=== PATIENT | male | born 1945 | race Two or more races ===

== ENCOUNTER 2021-01-18 13:43 | Inpatient (IN) | payer MEDICAID, OTHER ==
[~2021-01-18] VITALS: Ht 162.6 cm; Wt 56.7 kg
[2021-01-18 14:39] LABS: Basophils # (auto) 0 10 ^3/uL (0-0.2); Eosinophils # (auto) 0 10 ^3/uL (0-0.8); Lymphocytes # (auto) 0.4 10 ^3/uL (0.4-5.4); Neutrophils # (auto) 4.3 10 ^3/uL (1.6-8.6); White Blood Cell 5.4 10^3/uL (4.4-10.8)
[2021-01-18 14:41] LABS: Basophils % (auto) 0.3 % (0.0-2.0); Eosinophils % (auto) 0.3 % (0.0-7.0); Hematocrit 33.1 % (41.0-53.0); Hemoglobin 11.3 g/dL (13.5-17.5); Lymphocytes % (auto) 8.3 % (10.0-50.0); Mean Corpuscular Hemoglobin 34.2 pg (28.0-32.0); Mean Corpuscular Hgb Conc. 34.2 g/dL (32.0-36.0); Mean Corpuscular Volume 100.2 fL (80.0-100.0); Monocytes # (auto) 0.6 10 ^3/uL (0-1.3); Monocytes % (auto) 11.7 % (0.0-12.0); Neutrophils % (auto) 79.4 % (37.0-80.0); Nucleated Red Blood Cells % 0.4 %; Platelet Count (auto) 149 10^3/uL (140-450); Red Cell Distribution Width 18.2 % (11.8-14.3)
[2021-01-18 14:49] LABS: Albumin 3.5 g/dL (3.4-5.0); Calcium 8.6 mg/dL (8.5-10.1); Potassium 3.6 mmol/L (3.5-5.1)
[2021-01-18 14:51] LABS: BUN/Creatinine Ratio 20.2
[2021-01-18 14:55] LABS: Bilirubin, Total 1.2 mg/dL (0.2-1.0)
[2021-01-18] MEDS ORDERED: ACETAMINOPHEN 500 MG TAB PO ONE (15:00)
[2021-01-18] MEDS ORDERED: cefTRIAXone 1GM/50ML D5W 50 ML IV ONE (16:00)
[2021-01-18] MEDS ORDERED: AZITHROMYCIN 500MG/ 250ML 250 ML IV ONE (16:00)
[2021-01-18 16:11] LABS: Urine WBC None Seen /hpf (0 - 3)
[2021-01-18 16:41] LABS: Urine Bacteria NONE SEEN /hpf (None Seen); Urine Blood Negative /uL (Negative); Urine Specific Gravity 1.023 (1.001-1.035); Urine Sperm PRESENT /hpf (None Seen)
[2021-01-18] MEDS ORDERED: ACETAMINOPHEN 500 MG TAB PO PRN (18:45)
[2021-01-18] MEDS ORDERED: HYDROcodone-ACET 5/325MG TAB PO PRN (18:45)
[2021-01-18] MEDS ORDERED: NITROGLYCERIN 0.4 MG SL TAB SL PRN (18:45)
[2021-01-18] MEDS ORDERED: MORPHINE SULF INJ 2 MG/ML SYRINGE 1ML IV PRN ×2 (18:45)
[2021-01-18] MEDS ORDERED: ONDANSETRON HCL 4 MG/2 ML VIAL IV PRN (18:45)
[2021-01-18 22:00] VITALS: BP 103/57
[2021-01-18] MEDS: CARVEDILOL 3.125 MG TAB PO SCH (22:00)
[2021-01-19] MEDS ORDERED: BUME1TAB3 PO (04:23)
[2021-01-19] MEDS ORDERED: AMIO200T43 PO (04:23)
[2021-01-19] MEDS ORDERED: ATOR80TA PO (04:23)
[2021-01-19] MEDS ORDERED: DIGO0.12 PO (04:23)
[2021-01-19] MEDS ORDERED: SPIR25TA8 PO (04:23)
[2021-01-19] MEDS ORDERED: LEVO125T7 PO (04:25)
[2021-01-19 05:00] VITALS: BP 93/45
[2021-01-19] MEDS: LEVOTHYROXINE SODIUM 25 MCG TAB PO SCH (06:32)
[2021-01-19 09:00] VITALS: BP 94/46
[2021-01-19] MEDS ORDERED: cefTRIAXone 1GM/50ML D5W 50 ML IV SCH (09:00)
[2021-01-19] MEDS: CARVEDILOL 3.125 MG TAB PO SCH ×2 (09:30→22:00)
[2021-01-19] MEDS: ASPirin 81 mg TAB PO SCH (09:30)
[2021-01-19] MEDS: LISINOPRIL 5 MG TAB PO SCH (09:31)
[2021-01-19] MEDS ORDERED: AZITHROMYCIN 250 MG TAB PO SCH (10:00)
[2021-01-19] MEDS ORDERED: FUROSEMIDE 40 MG/4 ML VIAL IV SCH (10:00)
[2021-01-19] MEDS ORDERED: OPTISON 3ml Vial for INJ IV ONE (10:15)
[2021-01-19 12:56] VITALS: BP 90/49
[2021-01-19 20:00] VITALS: BP 98/53
[2021-01-19 22:18] VITALS: BP 98/53
[2021-01-20 05:20] VITALS: BP 107/63
[2021-01-20] MEDS: LEVOTHYROXINE SODIUM 25 MCG TAB PO SCH (07:05)
[2021-01-20 08:30] VITALS: BP 108/60
[2021-01-20] MEDS ORDERED: ONDA-144 PO (09:55)
[2021-01-20] MEDS: ASPirin 81 mg TAB PO SCH (09:56)
[2021-01-20] MEDS: CARVEDILOL 3.125 MG TAB PO SCH (09:56)
[2021-01-20] MEDS: LISINOPRIL 5 MG TAB PO SCH (09:57)
[2021-01-20 12:00] VITALS: BP 107/60
== END 2021-01-20 14:20 | disposition home or self-care (01) | DRG 194 ==
LOC: ER 13:43 → EDBD 13:43 → TELE-CENTR 18:46
PROVIDERS: ADMIT Nurse Practitioner Acute Care; ATTEND Internal Medicine
DX: I11.0 Hypertensive heart disease with heart failure (principal); R65.10 Systemic inflammatory response syndrome (SIRS) of non-infectious origin without acute organ dysfunction; I42.0 Dilated cardiomyopathy; D63.8 Anemia in other chronic diseases classified elsewhere; E11.9 Type 2 diabetes mellitus without complications; E78.5 Hyperlipidemia, unspecified; T50.B95A Adverse effect of other viral vaccines, initial encounter; I50.23 Acute on chronic systolic (congestive) heart failure; I25.10 Atherosclerotic heart disease of native coronary artery without angina pectoris; Z20.822 Contact with and (suspected) exposure to COVID-19; K70.30 Alcoholic cirrhosis of liver without ascites; Y92.89 Other specified places as the place of occurrence of the external cause; Z95.0 Presence of cardiac pacemaker
CPT/HCPCS: 36415; 71045; 80053; 80162; 81001; 83880; 84443; 84484; 85025; 85049; 87081; 87426; 93005; 93306; 96365; 96366; 96368; G0378; J0696; Q9956

== ENCOUNTER 2021-06-20 19:35 | Inpatient (IN) | payer MEDICARE, MEDICAID ==
[~2021-06-20] VITALS: Ht 165.1 cm; Wt 61.3 kg
[~2021-06-20 19:35] MED LIST: AMIO200T43 PO; ATOR80TA PO; BUME1TAB3 PO; DIGO0.12 PO; LEVO125T7 PO; ONDA-144 PO; SPIR25TA8 PO
[2021-06-20 22:37] LABS: Basophils # (auto) 0 10 ^3/uL (0-0.2); Basophils % (auto) 0.2 % (0.0-2.0); Eosinophils # (auto) 0 10 ^3/uL (0-0.8); Eosinophils % (auto) 0.8 % (0.0-7.0); Hematocrit 34.8 % (41.0-53.0); Hemoglobin 11.3 g/dL (13.5-17.5); Lymphocytes % (auto) 18.3 % (10.0-50.0); Mean Corpuscular Hemoglobin 32.8 pg (28.0-32.0); Mean Corpuscular Hgb Conc. 32.5 g/dL (32.0-36.0); Mean Corpuscular Volume 100.9 fL (80.0-100.0); Monocytes # (auto) 0.5 10 ^3/uL (0-1.3); Monocytes % (auto) 9.8 % (0.0-12.0); Neutrophils # (auto) 3.8 10 ^3/uL (1.6-8.6); Neutrophils % (auto) 70.9 % (37.0-80.0); Nucleated Red Blood Cells % 0.1 %; Red Blood Cells 3.44 10^6/uL (4.5-5.90); Red Cell Distribution Width 15.3 % (11.8-14.3); White Blood Cell 5.3 10^3/uL (4.4-10.8)
[2021-06-20 23:00] LABS: Albumin 3.6 g/dL (3.4-5.0); BUN/Creatinine Ratio 21.8; Calcium 8.3 mg/dL (8.5-10.1); Potassium 4.1 mmol/L (3.5-5.1)
[2021-06-20 23:06] LABS: Bilirubin, Total 1.1 mg/dL (0.2-1.0); Total Protein 7.6 g/dL (6.4-8.2)
[2021-06-21] MEDS ORDERED: NITROGLYCERIN 0.4 MG SL TAB SL PRN (10:45)
[2021-06-21] MEDS ORDERED: MORPHINE SULFATE INJECTION 2 MG/ML SYRG IV PRN (10:45)
[2021-06-21] MEDS ORDERED: FUROSEMIDE 40 MG/4 ML VIAL IV ONE (10:45)
[2021-06-21] MEDS: BUMETANIDE 2.5mg/10ml (0.25 mg/ml) INJ IV SCH ×2 (11:45→22:30)
[2021-06-21] MEDS ORDERED: FOLIC ACID 1 MG TAB PO ONE (13:45)
[2021-06-21] MEDS ORDERED: MULTIPLE VITAMINS W/ MINERALS TAB PO ONE (13:45)
[2021-06-21] MEDS ORDERED: THIAMINE HCL 100 MG TAB PO ONE (13:45)
[2021-06-21] MEDS ORDERED: SPIR25TA8 PO (14:06)
[2021-06-21 20:20] VITALS: BP 110/60
[2021-06-22 06:00] VITALS: BP 114/64
[2021-06-22] MEDS: BUMETANIDE 2.5mg/10ml (0.25 mg/ml) INJ IV SCH ×2 (06:45→17:25)
[2021-06-22] MEDS ORDERED: LEVOTHYROXINE SODIUM 100 MCG TAB PO SCH (07:00)
[2021-06-22 07:42] LABS: Basophils # (auto) 0 10 ^3/uL (0-0.2); Basophils % (auto) 0.4 % (0.0-2.0); Eosinophils # (auto) 0.1 10 ^3/uL (0-0.8); Eosinophils % (auto) 1.5 % (0.0-7.0); Hematocrit 33.8 % (41.0-53.0); Hemoglobin 11.4 g/dL (13.5-17.5); Lymphocytes # (auto) 0.9 10 ^3/uL (0.4-5.4); Lymphocytes % (auto) 20.7 % (10.0-50.0); Mean Corpuscular Hemoglobin 33.4 pg (28.0-32.0); Mean Corpuscular Hgb Conc. 33.9 g/dL (32.0-36.0); Mean Corpuscular Volume 98.5 fL (80.0-100.0); Monocytes # (auto) 0.5 10 ^3/uL (0-1.3); Neutrophils % (auto) 65.4 % (37.0-80.0); Nucleated Red Blood Cells % 0.1 %; Red Blood Cells 3.43 10^6/uL (4.5-5.90); Red Cell Distribution Width 14.7 % (11.8-14.3); White Blood Cell 4.6 10^3/uL (4.4-10.8)
[2021-06-22 08:02] LABS: INR 1.25 (0.9-1.15)
[2021-06-22 08:18] LABS: Calcium 8.8 mg/dL (8.5-10.1); Potassium 3.5 mmol/L (3.5-5.1)
[2021-06-22 08:24] LABS: Albumin 3.5 g/dL (3.4-5.0); BUN/Creatinine Ratio 26.2; Bilirubin, Total 1.4 mg/dL (0.2-1.0); Total Protein 6.8 g/dL (6.4-8.2)
[2021-06-22 09:00] VITALS: BP 107/55
[2021-06-22] MEDS: MULTIPLE VITAMINS W/ MINERALS TAB PO SCH (09:51)
[2021-06-22] MEDS: FOLIC ACID 1 MG TAB PO SCH (09:51)
[2021-06-22] MEDS: ENOXAPARIN SOD 40 MG/0.4 ML SYRINGE SC SCH (09:51)
[2021-06-22] MEDS: THIAMINE HCL 100 MG TAB PO SCH (09:52)
[2021-06-22] MEDS: DAPAGLIFLOZIN 5 MG TAB PO SCH (09:52)
[2021-06-22] MEDS: PANTOPRAZOLE 40 MG TAB PO SCH (09:52)
[2021-06-22 13:00] VITALS: BP 110/75
[2021-06-22] MEDS ORDERED: CHOLECALCIFEROL (VITD3) 2,000 UNIT CAP/TAB PO ONE (13:15)
[2021-06-22 17:00] VITALS: BP 107/63
[2021-06-22 22:00] VITALS: BP 108/58
[2021-06-23 00:19] VITALS: BP 108/58
[2021-06-23 05:00] VITALS: BP 101/52
[2021-06-23] MEDS: BUMETANIDE 2.5mg/10ml (0.25 mg/ml) INJ IV SCH ×2 (06:08→17:42)
[2021-06-23] MEDS ORDERED: LEVOTHYROXINE SODIUM 50 MCG TAB PO SCH (07:00)
[2021-06-23 07:26] LABS: Potassium 3.7 mmol/L (3.5-5.1)
[2021-06-23 07:31] LABS: BUN/Creatinine Ratio 23.9; Calcium 8.9 mg/dL (8.5-10.1)
[2021-06-23 09:00] VITALS: BP 102/58
[2021-06-23] MEDS: THIAMINE HCL 100 MG TAB PO SCH (09:33)
[2021-06-23] MEDS: DAPAGLIFLOZIN 5 MG TAB PO SCH (09:33)
[2021-06-23] MEDS: ENOXAPARIN SOD 40 MG/0.4 ML SYRINGE SC SCH (09:33)
[2021-06-23] MEDS: MULTIPLE VITAMINS W/ MINERALS TAB PO SCH (09:34)
[2021-06-23] MEDS: FOLIC ACID 1 MG TAB PO SCH (09:34)
[2021-06-23] MEDS: PANTOPRAZOLE 40 MG TAB PO SCH (09:34)
[2021-06-23] MEDS ORDERED: AMIODARONE HCL 200 MG TAB PO SCH (10:00)
[2021-06-23] MEDS ORDERED: CHOLECALCIFEROL (VITD3) 2,000 UNIT CAP/TAB PO SCH (10:00)
[2021-06-23] MEDS ORDERED: ATOR10TA PO (12:34)
[2021-06-23] MEDS ORDERED: CHOL20007 PO (12:34)
[2021-06-23] MEDS ORDERED: LEVO125T7 PO (12:34)
[2021-06-23] MEDS ORDERED: BUME1TAB3 PO (12:34)
[2021-06-23 13:00] VITALS: BP 154/66
[2021-06-23 13:13] VITALS: BP 102/58
[2021-06-23 17:00] VITALS: BP 122/76
== END 2021-06-23 19:23 | disposition home or self-care (01) | DRG 291 ==
LOC: ER 19:36 → TELE 06-21 10:34 → TELE-WESTW 06-21 20:25
PROVIDERS: ADMIT Internal Medicine; ATTEND Internal Medicine
DX: I13.0 Hypertensive heart and chronic kidney disease with heart failure and stage 1 through stage 4 chronic kidney disease, or unspecified chronic kidney disease (principal); I50.43 Acute on chronic combined systolic (congestive) and diastolic (congestive) heart failure; I42.0 Dilated cardiomyopathy; I42.6 Alcoholic cardiomyopathy; I27.20 Pulmonary hypertension, unspecified; K70.31 Alcoholic cirrhosis of liver with ascites; N18.9 Chronic kidney disease, unspecified; E03.9 Hypothyroidism, unspecified; E55.9 Vitamin D deficiency, unspecified; E11.22 Type 2 diabetes mellitus with diabetic chronic kidney disease; K76.1 Chronic passive congestion of liver; Z20.822 Contact with and (suspected) exposure to COVID-19; E78.5 Hyperlipidemia, unspecified; F10.10 Alcohol abuse, uncomplicated; I25.10 Atherosclerotic heart disease of native coronary artery without angina pectoris; Z82.49 Family history of ischemic heart disease and other diseases of the circulatory system; Z91.19 Patient's noncompliance with other medical treatment and regimen; Z95.810 Presence of automatic (implantable) cardiac defibrillator; Z83.3 Family history of diabetes mellitus; Z87.891 Personal history of nicotine dependence; Z91.14 Patient's other noncompliance with medication regimen
CPT/HCPCS: 36415; 71045; 76700; 80048; 80053; 80061; 82306; 83735; 83880; 84443; 84484; 85025; 85610; 87426; 93005; 93306; 93970; 96374; 97110; 97116; 97530; G0378

== ENCOUNTER 2021-07-29 08:41 | Emergency (ER) | payer OTHER, MEDICAID ==
[~2021-07-29] VITALS: Ht 165.1 cm; Wt 61.2 kg
[~2021-07-29 08:41] MED LIST changes: -AMIO200T43 PO; +ATOR10TA PO; -ATOR80TA PO; -DIGO0.12 PO; -ONDA-144 PO; -SPIR25TA8 PO
[2021-07-29 09:13] VITALS: BP 141/72
[2021-07-29] MEDS ORDERED: BENZ100C19 PO (10:42)
[2021-07-29] MEDS ORDERED: DOXY-286 PO (10:42)
[2021-07-29] MEDS ORDERED: PRED10TA PO (10:42)
[2021-07-29] MEDS ORDERED: ACET-1158 PO (10:42)
== END 2021-07-29 11:42 | disposition home or self-care (01) ==
LOC: ER 08:41
DX: J06.9 Acute upper respiratory infection, unspecified (principal); I11.0 Hypertensive heart disease with heart failure; I50.9 Heart failure, unspecified; E11.9 Type 2 diabetes mellitus without complications; E78.5 Hyperlipidemia, unspecified; Z20.822 Contact with and (suspected) exposure to COVID-19
CPT/HCPCS: 36415; 71046; 87426

== ENCOUNTER 2023-06-02 16:42 | Inpatient (IN) | payer MEDICARE, MEDICAID ==
[~2023-06-02] VITALS: Ht 165.1 cm; Wt 63.4 kg
[~2023-06-02 16:42] MED LIST changes: +ACET500T58 PO; +BENZ100C19 PO; +DOXY-286 PO; +PRED10TA PO
[2023-06-02 17:11] LABS: Basophils # (auto) 0 10 ^3/uL (0-0.2); Basophils % (auto) 0.7 % (0.0-2.0); Eosinophils # (auto) 0.2 10 ^3/uL (0-0.8); Eosinophils % (auto) 3.2 % (0.0-7.0); Hematocrit 38.5 % (41.0-53.0); Lymphocytes # (auto) 1.5 10 ^3/uL (0.4-5.4); Lymphocytes % (auto) 27.3 % (10.0-50.0); Mean Corpuscular Hemoglobin 33.9 pg (28.0-32.0); Mean Corpuscular Hgb Conc. 33.8 g/dL (32.0-36.0); Mean Corpuscular Volume 100.3 fL (80.0-100.0); Monocytes # (auto) 0.6 10 ^3/uL (0-1.3); Monocytes % (auto) 11.7 % (0.0-12.0); Neutrophils # (auto) 3.1 10 ^3/uL (1.6-8.6); Neutrophils % (auto) 57.1 % (37.0-80.0); Nucleated Red Blood Cells % 0.1 %; Red Blood Cells 3.84 10^6/uL (4.5-5.90); Red Cell Distribution Width 15.3 % (11.8-14.3); White Blood Cell 5.5 10^3/uL (4.4-10.8)
[2023-06-02] MEDS ORDERED: MECLIZINE HCL 25 MG TAB PO ONE (17:15)
[2023-06-02 17:29] LABS: Alanine Aminotransferase 23 U/L (7-40); Albumin 4.2 g/dL (3.2-4.8); Alkaline Phosphatase 67 U/L (46-116); Anion Gap 7 (5-15); Aspartate Aminotransferase 23 U/L (13-40); BUN/Creatinine Ratio 17.4 (10.0-20.0); Bilirubin, Total 0.8 mg/dL (0.2-1.0); Blood Urea Nitrogen 27 mg/dL (9-23); Calcium 8.5 mg/dL (8.5-10.1); Carbon Dioxide 26 mmol/L (20-30); Chloride 107 mmol/L (98-107); Glucose 95 mg/dL (74-106); Potassium 4.2 mmol/L (3.5-5.1); Sodium 140 mmol/L (136-145); Total Protein 6.7 g/dL (5.7-8.2)
[2023-06-02 18:15] LABS: INR 1.13 (0.9-1.15); Partial Thromboplastin Time 28.8 SEC (24.5-34.5); Prothrombin Time 11.8 sec (9.3-11.8)
[2023-06-02] MEDS ORDERED: DEXTROSE (50%) 50ML SYRG IV PRN (21:00)
[2023-06-02] MEDS ORDERED: DOCUSATE SOD 100 MG CAP PO PRN (21:00)
[2023-06-02] MEDS ORDERED: HYDROcodone-ACET 5/325MG TAB PO PRN (21:00)
[2023-06-02] MEDS ORDERED: ONDANSETRON HCL 4 MG/2 ML VIAL IV PRN (21:00)
[2023-06-02] MEDS ORDERED: ACETAMINOPHEN 325 MG TAB PO PRN (21:00)
[2023-06-02] MEDS ORDERED: InsuLIN REG 1unit/0.01ml Soln (100units/ml) SC SCH (22:00)
[2023-06-02] MEDS: SODIUM CHLOR 0.9% PF (SALINE LOCK) 10ML VIAL/SYR IV SCH (22:00)
[2023-06-02] MEDS: ACCU-CHEK COMFORT CURVE STRIP VI SCH (22:00)
[2023-06-02] MEDS ORDERED: ATORVASTATIN 20 MG TAB PO SCH (22:00)
[2023-06-02] MEDS: CARVEDILOL 3.125 MG TAB PO SCH (22:47)
[2023-06-02] MEDS ORDERED: NITROGLYCERIN 0.4 MG SL TAB SL PRN (23:30)
[2023-06-02] MEDS ORDERED: MORPHINE SULFATE INJ 2 MG/ml SYRG IV PRN (23:30)
[2023-06-03] VITALS (7 sets, daily range): BP systolic 98–118; BP diastolic 52–55; PULSE 67–78; RESP 12–20; TEMP 97.2–98.2; O2SAT 93–99
[2023-06-03 00:39] LABS: Urine Bacteria NONE SEEN /hpf (None Seen); Urine Blood Negative /uL (Negative); Urine Clarity Clear (Clear); Urine Color Yellow (Yellow); Urine Protein, UAD TRACE (Negative); Urine Specific Gravity 1.032 (1.001-1.035); Urine WBC <1 /hpf (0 - 3)
[2023-06-03 00:49] LABS: Amphetamine Screen, Urine Neg (NEGATIVE); Benzodiazephine Screen, Urine Neg (NEGATIVE)
[2023-06-03 00:50] LABS: Barbiturate Scree,Urine Neg (NEGATIVE); Cannabinoid Screen, Urine Neg (NEGATIVE); Cocaine Screen, Urine Neg (NEGATIVE); Opiate Scree,Urine Neg (NEGATIVE); Phencyclidine Screen, Urine Neg (NEGATIVE)
[2023-06-03] MEDS: SODIUM CHLOR 0.9% PF (SALINE LOCK) 10ML VIAL/SYR IV SCH ×3 (05:59→21:57)
[2023-06-03] MEDS: ACCU-CHEK COMFORT CURVE STRIP VI SCH (06:02)
[2023-06-03 06:34] LABS: Basophils # (auto) 0 10 ^3/uL (0-0.2); Eosinophils # (auto) 0.2 10 ^3/uL (0-0.8); Lymphocytes # (auto) 1.2 10 ^3/uL (0.4-5.4); Monocytes # (auto) 0.6 10 ^3/uL (0-1.3); Nucleated Red Blood Cells % 0.1 %
[2023-06-03 06:36] LABS: Basophils % (auto) 0.5 % (0.0-2.0); Eosinophils % (auto) 3.7 % (0.0-7.0); Hematocrit 34.8 % (41.0-53.0); Hemoglobin 11.9 g/dL (13.5-17.5); Lymphocytes % (auto) 27.9 % (10.0-50.0); Mean Corpuscular Hemoglobin 34.2 pg (28.0-32.0); Mean Corpuscular Hgb Conc. 34.3 g/dL (32.0-36.0); Mean Corpuscular Volume 99.9 fL (80.0-100.0); Monocytes % (auto) 14.4 % (0.0-12.0); Neutrophils # (auto) 2.3 10 ^3/uL (1.6-8.6); Neutrophils % (auto) 53.5 % (37.0-80.0); Red Blood Cells 3.49 10^6/uL (4.5-5.90); Red Cell Distribution Width 15.3 % (11.8-14.3); White Blood Cell 4.3 10^3/uL (4.4-10.8)
[2023-06-03] MEDS ORDERED: InsuLIN REG 1unit/0.01ml Soln (100units/ml) SC SCH (07:00)
[2023-06-03 07:07] LABS: Alanine Aminotransferase 18 U/L (7-40); Anion Gap 8 (5-15); Calcium 9.1 mg/dL (8.5-10.1); Carbon Dioxide 25 mmol/L (20-30); Chloride 108 mmol/L (98-107); Potassium 3.8 mmol/L (3.5-5.1); Sodium 141 mmol/L (136-145)
[2023-06-03 07:09] LABS: BUN/Creatinine Ratio 16.7 (10.0-20.0); Blood Urea Nitrogen 25 mg/dL (9-23); Glucose 86 mg/dL (74-106)
[2023-06-03 07:10] LABS: Aspartate Aminotransferase 18 U/L (13-40)
[2023-06-03 07:11] LABS: Total Protein 6.7 g/dL (5.7-8.2)
[2023-06-03] MEDS: LEVOTHYROXINE SODIUM 50 MCG TAB PO SCH (08:16)
[2023-06-03] MEDS ORDERED: FUROSEMIDE 40 MG/4 ML VIAL IV ONE (09:45)
[2023-06-03] MEDS: ENOXAPARIN SOD 40 MG/0.4 ML SYRINGE SC SCH (10:00)
[2023-06-03 10:52] LABS: Alkaline Phosphatase 63 U/L (46-116)
[2023-06-03 10:56] LABS: Triglycerides 65 mg/dL (< 150)
[2023-06-03 10:57] LABS: LDL Cholesterol 58 mg/dL (< 100)
[2023-06-03 10:58] LABS: Cholesterol 92 mg/dL (< 200); HDL Cholesterol 29 mg/dL (40-59)
[2023-06-03] MEDS: ASPirin 81 mg TAB PO SCH (12:09)
[2023-06-03] MEDS: CARVEDILOL 3.125 MG TAB PO SCH ×2 (12:14→21:57)
[2023-06-03] MEDS: FUROSEMIDE 20 MG/2 ML VIAL IV SCH (17:49)
[2023-06-03] MEDS: ATORVASTATIN 20 MG TAB PO SCH (21:56)
[2023-06-04] VITALS (8 sets, daily range): BP systolic 98–109; BP diastolic 53–63; PULSE 68–77; RESP 17–20; TEMP 97.8–98.7; O2SAT 94–99
[2023-06-04] MEDS: FUROSEMIDE 20 MG/2 ML VIAL IV SCH ×2 (05:52→17:31)
[2023-06-04] MEDS: SODIUM CHLOR 0.9% PF (SALINE LOCK) 10ML VIAL/SYR IV SCH ×3 (05:52→21:27)
[2023-06-04] MEDS: LEVOTHYROXINE SODIUM 50 MCG TAB PO SCH (06:11)
[2023-06-04] MEDS ORDERED: PANT40TA2 PO (06:13)
[2023-06-04] MEDS: ASPirin 81 mg TAB PO SCH (09:52)
[2023-06-04] MEDS: ENOXAPARIN SOD 40 MG/0.4 ML SYRINGE SC SCH (09:52)
[2023-06-04] MEDS: CARVEDILOL 3.125 MG TAB PO SCH ×2 (09:55→21:30)
[2023-06-04] MEDS ORDERED: PANTOPRAZOLE 40 MG TAB PO ONE (11:00)
[2023-06-04] MEDS ORDERED: POTA10TA51 PO (11:10)
[2023-06-04] MEDS ORDERED: ASPI-543 PO (11:11)
[2023-06-04] MEDS ORDERED: LEVO100T8 PO (11:12)
[2023-06-04] MEDS ORDERED: CHOL20007 PO (11:13)
[2023-06-04] MEDS ORDERED: MULT-1018 PO (11:13)
[2023-06-04] MEDS ORDERED: CALC150C PO (11:14)
[2023-06-04] MEDS ORDERED: POTASSIUM CHL 20 Meq TABLET PO ONE (11:15)
[2023-06-04] MEDS ORDERED: CARV3.1240 PO (11:15)
[2023-06-04] MEDS ORDERED: TAMS-35 PO (11:15)
[2023-06-04] MEDS ORDERED: NAPR-957 PO (11:16)
[2023-06-04] MEDS ORDERED: LACT12CR17 EX (12:19)
[2023-06-04] MEDS ORDERED: CLOT1CRE51 TOP (12:19)
[2023-06-04] MEDS ORDERED: KETO0.5S31 EACHEYE (13:34)
[2023-06-04] MEDS: TAMSULOSIN HYDROCHLORIDE 0.4 MG CAP PO SCH (17:31)
[2023-06-04] MEDS: ATORVASTATIN 20 MG TAB PO SCH (21:28)
[2023-06-05] VITALS (12 sets, daily range): BP systolic 91–125; BP diastolic 52–78; PULSE 60–97; RESP 12–19; TEMP 97.9–98.7; O2SAT 96–98
[2023-06-05] MEDS: LEVOTHYROXINE SODIUM 50 MCG TAB PO SCH (04:44)
[2023-06-05] MEDS: FUROSEMIDE 20 MG/2 ML VIAL IV SCH ×2 (04:44→17:18)
[2023-06-05] MEDS: SODIUM CHLOR 0.9% PF (SALINE LOCK) 10ML VIAL/SYR IV SCH ×3 (05:18→21:17)
[2023-06-05 05:58] LABS: Anion Gap 7 (5-15); Carbon Dioxide 26 mmol/L (20-30); Chloride 103 mmol/L (98-107); Potassium 3.9 mmol/L (3.5-5.1); Sodium 136 mmol/L (136-145)
[2023-06-05 06:00] LABS: Calcium 9.4 mg/dL (8.7-10.4)
[2023-06-05 06:04] LABS: Basophils # (auto) 0 10 ^3/uL (0-0.2); Basophils % (auto) 0.5 % (0.0-2.0); Blood Urea Nitrogen 30 mg/dL (9-23); Eosinophils # (auto) 0.2 10 ^3/uL (0-0.8); Eosinophils % (auto) 3.2 % (0.0-7.0); Glucose 90 mg/dL (74-106); Hematocrit 39.3 % (41.0-53.0); Hemoglobin 13.5 g/dL (13.5-17.5); Lymphocytes # (auto) 1.2 10 ^3/uL (0.4-5.4); Lymphocytes % (auto) 20.6 % (10.0-50.0); Mean Corpuscular Hgb Conc. 34.3 g/dL (32.0-36.0); Mean Corpuscular Volume 98.9 fL (80.0-100.0); Monocytes # (auto) 0.7 10 ^3/uL (0-1.3); Monocytes % (auto) 11.8 % (0.0-12.0); Neutrophils # (auto) 3.7 10 ^3/uL (1.6-8.6); Neutrophils % (auto) 63.9 % (37.0-80.0); Red Blood Cells 3.98 10^6/uL (4.5-5.90); Red Cell Distribution Width 14.8 % (11.8-14.3); White Blood Cell 5.8 10^3/uL (4.4-10.8)
[2023-06-05] MEDS: ENOXAPARIN SOD 40 MG/0.4 ML SYRINGE SC SCH (10:00)
[2023-06-05] MEDS: POTASSIUM CHL 20 Meq TABLET PO SCH (10:23)
[2023-06-05] MEDS: PANTOPRAZOLE 40 MG TAB PO SCH (10:23)
[2023-06-05] MEDS: ASPirin 81 mg TAB PO SCH (10:23)
[2023-06-05] MEDS: CARVEDILOL 3.125 MG TAB PO SCH ×2 (10:24→21:15)
[2023-06-05] MEDS ORDERED: LIDOCAINE 2%HCL (LOCAL ANESTH.) INJ 20ML MDV ONE (12:32)
[2023-06-05] MEDS ORDERED: MIDAZOLAM HCL 2MG/2ML 2ml VIAL (1mg/ml) ONE (12:39)
[2023-06-05] MEDS ORDERED: fentaNYL CITRATE 100 MCG/2 ML VL ONE (12:39)
[2023-06-05] MEDS ORDERED: ANGIOMAX 250 MG VIAL IV ONE (12:39)
[2023-06-05] MEDS ORDERED: SODIUM CHL 0.9% 0 ML ONE (12:39)
[2023-06-05] MEDS: TAMSULOSIN HYDROCHLORIDE 0.4 MG CAP PO SCH (17:18)
[2023-06-05 17:59] LABS: COVID19 ANTIGEN SOFIA FIA NEGATIVE (NEGATIVE)
[2023-06-05] MEDS: ATORVASTATIN 20 MG TAB PO SCH (21:14)
[2023-06-06] VITALS (8 sets, daily range): BP systolic 98–110; BP diastolic 52–59; PULSE 70–79; RESP 17–20; TEMP 98.4–99.5; O2SAT 94–98
[2023-06-06] MEDS: SODIUM CHLOR 0.9% PF (SALINE LOCK) 10ML VIAL/SYR IV SCH ×3 (06:15→21:46)
[2023-06-06] MEDS: FUROSEMIDE 20 MG/2 ML VIAL IV SCH ×2 (06:16→17:39)
[2023-06-06] MEDS: LEVOTHYROXINE SODIUM 50 MCG TAB PO SCH (06:17)
[2023-06-06] MEDS: POTASSIUM CHL 20 Meq TABLET PO SCH (09:26)
[2023-06-06] MEDS: PANTOPRAZOLE 40 MG TAB PO SCH (09:26)
[2023-06-06] MEDS: ASPirin 81 mg TAB PO SCH (09:27)
[2023-06-06] MEDS: CARVEDILOL 3.125 MG TAB PO SCH ×2 (09:27→21:46)
[2023-06-06] MEDS: ENOXAPARIN SOD 40 MG/0.4 ML SYRINGE SC SCH (09:28)
[2023-06-06] MEDS: TAMSULOSIN HYDROCHLORIDE 0.4 MG CAP PO SCH (17:39)
[2023-06-06] MEDS: ATORVASTATIN 20 MG TAB PO SCH (21:44)
[2023-06-07] VITALS (7 sets, daily range): BP systolic 91–111; BP diastolic 52–64; PULSE 63–78; RESP 17–18; TEMP 97.8–98.1; O2SAT 95–99
[2023-06-07] MEDS: LEVOTHYROXINE SODIUM 50 MCG TAB PO SCH (06:29)
[2023-06-07] MEDS: FUROSEMIDE 20 MG/2 ML VIAL IV SCH ×2 (06:35→18:21)
[2023-06-07] MEDS: SODIUM CHLOR 0.9% PF (SALINE LOCK) 10ML VIAL/SYR IV SCH ×3 (06:36→21:35)
[2023-06-07] MEDS: ASPirin 81 mg TAB PO SCH (11:43)
[2023-06-07] MEDS: PANTOPRAZOLE 40 MG TAB PO SCH (11:43)
[2023-06-07] MEDS: CARVEDILOL 3.125 MG TAB PO SCH ×2 (11:43→21:35)
[2023-06-07] MEDS: POTASSIUM CHL 20 Meq TABLET PO SCH (11:44)
[2023-06-07] MEDS: ENOXAPARIN SOD 40 MG/0.4 ML SYRINGE SC SCH (11:44)
[2023-06-07] MEDS: TAMSULOSIN HYDROCHLORIDE 0.4 MG CAP PO SCH (18:20)
[2023-06-07] MEDS: ATORVASTATIN 20 MG TAB PO SCH (21:35)
[2023-06-08] VITALS (7 sets, daily range): BP systolic 95–112; BP diastolic 55–66; PULSE 63–78; RESP 18–20; TEMP 97.8–98.5; O2SAT 96–98
[2023-06-08] MEDS: FUROSEMIDE 20 MG/2 ML VIAL IV SCH ×2 (05:49→18:00)
[2023-06-08] MEDS: SODIUM CHLOR 0.9% PF (SALINE LOCK) 10ML VIAL/SYR IV SCH ×3 (05:49→21:50)
[2023-06-08] MEDS: LEVOTHYROXINE SODIUM 50 MCG TAB PO SCH (06:36)
[2023-06-08] MEDS: ENOXAPARIN SOD 40 MG/0.4 ML SYRINGE SC SCH (09:47)
[2023-06-08] MEDS: ASPirin 81 mg TAB PO SCH (09:54)
[2023-06-08] MEDS: PANTOPRAZOLE 40 MG TAB PO SCH (09:54)
[2023-06-08] MEDS: POTASSIUM CHL 20 Meq TABLET PO SCH (09:54)
[2023-06-08] MEDS: CARVEDILOL 3.125 MG TAB PO SCH ×2 (09:54→21:50)
[2023-06-08] MEDS: TAMSULOSIN HYDROCHLORIDE 0.4 MG CAP PO SCH (18:01)
[2023-06-08] MEDS: ATORVASTATIN 20 MG TAB PO SCH (21:50)
[2023-06-09 05:00] VITALS: BP 98/58; PULSE 68; RESP 22; TEMP 97.8; O2SAT 98
[2023-06-09] MEDS: FUROSEMIDE 20 MG/2 ML VIAL IV SCH (06:00)
[2023-06-09] MEDS: SODIUM CHLOR 0.9% PF (SALINE LOCK) 10ML VIAL/SYR IV SCH ×2 (06:01→14:00)
[2023-06-09] MEDS: LEVOTHYROXINE SODIUM 50 MCG TAB PO SCH (06:18)
[2023-06-09 08:00] VITALS: BP 99/59; PULSE 89; RESP 20; TEMP 98.7; O2SAT 97; O2SAT 98
[2023-06-09] MEDS: CARVEDILOL 3.125 MG TAB PO SCH (10:00)
[2023-06-09] MEDS: ASPirin 81 mg TAB PO SCH (11:01)
[2023-06-09] MEDS: PANTOPRAZOLE 40 MG TAB PO SCH (11:01)
[2023-06-09] MEDS: ENOXAPARIN SOD 40 MG/0.4 ML SYRINGE SC SCH (11:01)
[2023-06-09] MEDS: POTASSIUM CHL 20 Meq TABLET PO SCH (11:02)
[2023-06-09 13:00] VITALS: BP 110/56; PULSE 77; RESP 18; TEMP 98.7; O2SAT 97
== END 2023-06-09 14:30 | disposition home or self-care (01) | DRG 286 ==
LOC: ER 16:42 → TELE 23:26 → TELE-WESTW 06-03 07:03
PROVIDERS: ADMIT Nurse Practitioner Family; ATTEND Family Medicine
PROC: 4A023N8 Measurement of Cardiac Sampling and Pressure, Bilateral, Percutaneous Approach (ICD-10-PCS; principal; 2023-06-05)
PROC: B2111ZZ Fluoroscopy of Multiple Coronary Arteries using Low Osmolar Contrast (ICD-10-PCS; 2023-06-05)
PROC: B2151ZZ Fluoroscopy of Left Heart using Low Osmolar Contrast (ICD-10-PCS; 2023-06-05)
DX: I13.0 Hypertensive heart and chronic kidney disease with heart failure and stage 1 through stage 4 chronic kidney disease, or unspecified chronic kidney disease (principal); I50.23 Acute on chronic systolic (congestive) heart failure; N17.9 Acute kidney failure, unspecified; D84.9 Immunodeficiency, unspecified; R55 Syncope and collapse; I42.0 Dilated cardiomyopathy; I25.10 Atherosclerotic heart disease of native coronary artery without angina pectoris; E78.5 Hyperlipidemia, unspecified; E03.9 Hypothyroidism, unspecified; E11.22 Type 2 diabetes mellitus with diabetic chronic kidney disease; G89.11 Acute pain due to trauma; I08.1 Rheumatic disorders of both mitral and tricuspid valves; F10.10 Alcohol abuse, uncomplicated; I27.20 Pulmonary hypertension, unspecified; N40.0 Benign prostatic hyperplasia without lower urinary tract symptoms; N18.9 Chronic kidney disease, unspecified; Z20.822 Contact with and (suspected) exposure to COVID-19; E07.9 Disorder of thyroid, unspecified; K74.60 Unspecified cirrhosis of liver; Z95.5 Presence of coronary angioplasty implant and graft; Z95.810 Presence of automatic (implantable) cardiac defibrillator; Z91.199 Patient's noncompliance with other medical treatment and regimen due to unspecified reason; Z87.891 Personal history of nicotine dependence; Z83.3 Family history of diabetes mellitus; Z82.49 Family history of ischemic heart disease and other diseases of the circulatory system; Z79.899 Other long term (current) drug therapy
CPT/HCPCS: 36415; 70450; 71045; 72125; 78582; 80048; 80053; 80061; 80307; 81001; 82962; 83036; 83605; 83690; 83880; 84443; 84484; 85025; 85379; 85610; 85730; 86850; 86900; 86901; 87040; 87426; 93005; 93306; 93886; 97163; 99152; G0378; J2250